=== PATIENT | female | born 1965 | race Caucasian/White ===

== ENCOUNTER 2021-10-19 10:17 | Emergency (ER) | payer BC ==
[2021-10-19] MEDS ORDERED: ULTRAM50 MG PO (14:12)
[2021-10-19] MEDS ORDERED: CEPHALEXIN500 M1 PO (14:30)
== END 2021-10-19 14:25 | disposition home or self-care (01) ==
LOC: ER1 10:17
DX: S51.812A Laceration without foreign body of left forearm, initial encounter (principal); S71.112A Laceration without foreign body, left thigh, initial encounter; S01.81XA Laceration without foreign body of other part of head, initial encounter; S01.01XA Laceration without foreign body of scalp, initial encounter; Z23 Encounter for immunization; W01.0XXA Fall on same level from slipping, tripping and stumbling without subsequent striking against object, initial encounter
CPT/HCPCS: 12006; 12013; 70450; 73090; 90471; 90714; 99284